=== PATIENT | male | born 1975 | race Caucasian/White ===

== ENCOUNTER → 2024-01-14 18:43 | Outpatient (REF) | payer OTHER, SELFPAY | LOC: MRI 3T 18:43 | PROVIDERS: ATTENDING PHYSICIAN Internal Medicine Gastroenterology; FAMILY PHYSICIAN Physician Assistant Medical | DX: K86.2 Cyst of pancreas (principal) | CPT/HCPCS: 74183; A9575 ==

== ENCOUNTER → 2024-04-08 06:45 | Outpatient (REF) | payer OTHER, SELFPAY | LOC: HWRAD 06:45 | PROVIDERS: ATTENDING PHYSICIAN Internal Medicine Geriatric Medicine | DX: R63.4 Abnormal weight loss (principal); R74.01 Elevation of levels of liver transaminase levels; R93.89 Abnormal findings on diagnostic imaging of other specified body structures; R52 Pain, unspecified | CPT/HCPCS: 76604 ==

== ENCOUNTER 2024-11-05 08:21 | Emergency (ER) | payer OTHER, SELFPAY ==
[2024-11-05 08:34] VITALS: BP 137/87
[2024-11-05 08:55] LABS: % Basophils 0.7 % (0-2); % Eosinophils 1.2 % (0-6); % Immature Granulocytes 0.2 % (0-0.5); % Lymphocytes 24.8 % (20.5-51.1); % Monocytes 6.5 % (1.7-9.3); % Neutrophils 66.6 % (42.2-75.2); Absolute Eosinophils 0.1 10^3/uL (0-0.7); Absolute Lymphocytes 1.4 10^3/uL (1.2-3.4); Absolute Monocytes 0.4 10^3/uL (0.1-0.6); Absolute Neutrophils 3.8 10^3/uL (1.4-6.5); Hematocrit 44.8 % (39.0-52.0); Hemoglobin 15.2 g/dL (13.0-18.0); Mean Corp Hgb Conc. 33.9 g/dL (33.0-37.0); Mean Corpuscular Hgb 31.9 pg (27.0-31.0); Mean Corpuscular Volume 94.1 fL (80.0-94.0); Mean Platelet Volume 9.9 fL (7.4-10.4); Nucleated Red Blood Cells % 0 % (-); Platelet Count 239 10^3/uL (130-400); Red Blood Cell Count 4.76 10^6/uL (4.70-6.10); Red Cell Dist. Width 12.4 % (11.5-14.5); White Blood Cell Count 5.7 10^3/uL (4.8-10.8)
[2024-11-05 09:12] LABS: ALT (SGPT) 59 U/L (0-50); AST (SGOT) 37 U/L (17-59); Albumin 4.5 g/dl (3.5-5.0); Alkaline Phosphatase 92 U/L (38-126); Blood Urea Nitrogen 16 mg/dl (9-20); Calcium 9.7 mg/dl (8.4-10.2); Carbon Dioxide 29 mmol/L (22-30); Chloride 101 mmol/L (98-107); Glucose 94 mg/dl (70-99); Potassium 4.4 mmol/L (3.5-5.1); Sodium 139 mmol/L (135-145); Total Bilirubin 1.2 mg/dl (0.2-1.3); Total Protein 7.1 g/dl (6.3-8.2); eGFR > 60.00
--- NOTE | 2024-11-05 09:12 | ED.GENMED ---
History of Present Illness
General
Chief Complaint: Fatigue
Source: patient and spouse
Exam Limitations: none
Time Seen by Provider: 11/05/24 09:11
Nursing documentation reviewed up to this point in time: agreed with
History of Present Illness
History of Present Illness:
The patient is a 49-year-old man who reports he has been experiencing fatigue and not feeling well for about 4 months. Patient reports that he is 'sick of not feeling well'. He reports that is inhibiting his ability to work properly, as it is
making him have difficulty concentrating and staying awake during work. Patient reports that his muscles feel fatigued and at times he has tremor in his legs. Patient describes a feeling of heaviness in his muscles and increased difficulty with
fine motor movement due to the fatigue. Additionally, patient reports that when he lays down he can 'feel his heartbeat radiating in towards his neck and head'. He reports that this keeps him up at night so he has had difficulty sleeping, causing
him to only get about 2 to 3 hours of sleep per night. Additionally, patient reports occasional abdominal pain, however, he denies abdominal pain at this time. Patient reports that he has been to his primary care doctor for this as well as his
environmental services assistant. He denies specific chest pain, palpitations and shortness of breath. He denies rash and joint pain. He denies fever. Patient reports that he likely has a history of hemochromatosis as well as elevated LFTs and is requesting that we
do imaging of his liver. He reports he is followed by the solar sales energy advisor at [facility] and is supposed to get a specialized ultrasound at [facility] but they were backed up and unable to accommodate him. Patient denies any specific areas of pain however at this
time.
Past History
Past History
ED Past Medical History: Arrthythmia (afib, followed by morelia Godinez) and Other (elevated LFTs, s/p bx, possible hemochromatosis)
ED Past Surgical History: Other
Social History
Tobacco: Non-smoker
Alcohol: Occasional
Drug: None
Personal:
Living: with family
Employment: Employed
Family History
Family History: Hypertension
Review of Systems
Review of Systems
Allergies reviewed?: Yes
All Other Systems: ROS reviewed and negative except as documented in HPI and ROS
Constitutional: Reports fatigue and sleep disturbance
EENT: Reports no symptoms
Respiratory: Reports no symptoms
Cardiac: Reports other (' Feels his heartbeat' but denies palpitations)
ABD/GI: Reports no symptoms
: Reports no symptoms
Musculoskeletal: Reports other (Generalized muscle weakness and muscle tremor)
Skin: Reports no symptoms
Neurological: Reports weakness (Generalized weakness)
Endocrine: Reports no symptoms
Hematologic/Lymphatic: Reports no symptoms
Psychiatric: Reports no symptoms
Phy Exam
Physical Exam
Physical Exam:
Physical Exam
General: no apparent distress, not acutely ill
Neck: supple. no meningeal signs. normal psoterior pharynx
Heart: s1/s2 regular rate and rhythm, no murmur. equal radial pulses.
Lungs: no acute respiratory distress. clear bilaterally
Abdomen: normal bowel sounds. not tender. no CVAT
Neuro: alert and oriented. no focal neurological deficits. 5 out of 5 strength in all extremities. No drift.
Skin: no rash
Psychiatric: well kept. interactive and cooperative
Extremities: no edema. no calf tenderness. negative homans. good distal pulses
Course
Orders/Labs/Results
Orders:
Orders
11/05/24 08:39
Electrocardiogram (*1) Urgent
Reason for Study: Fatigue / Weakness
EKG- Treatment ONCE
11/05/24 08:47
C-Reactive Protein Urgent
Comment: ADD ON
Complete Blood Count/With Diff Urgent
Comprehensive Metabolic Panel Urgent
Creatine Phosphokinase Urgent
Comment: ADD ON
Erythrocyte Sed Rate Urgent
Comment: ADD ON
Ferritin Urgent
Comment: ADD ON
Iron Urgent
Comment: ADD ON
Lipase Urgent
Comment: ADD ON
Lyme Progressive Urgent
Comment: ADD ON
TSH Urgent
Comment: ADD ON
11/05/24 09:14
Add On- LAB Urgent
Tests Added?: lipase
11/05/24 09:32
Add On- LAB Urgent
Tests Added?: lyme progressive, TSH
US Abdomen Complete/Upper Urgent
Comment:
Reason For Exam: increased LFTs
11/05/24 09:33
Add On- LAB Urgent
Tests Added?: CRP, ESR
11/05/24 09:43
CR Chest - 2 Views Urgent
Comment:
Reason For Exam: fatigue
11/05/24 11:32
Add On- LAB Urgent
Tests Added?: CK, FERRITIN, IRON
Abnormal Lab Results
11/05/24
08:47
MCV 94.1 H fL
(80.0-94.0)
MCH 31.9 H pg
(27.0-31.0)
ALT 59 H U/L
(0-50)
11/05/24 08:47
11/05/24 08:47
Vital Signs
Initial and Last Documented VS:
Initial Vital Signs
Temp Pulse Resp BP Pulse Ox
98.6 F 77 18 137/87 100
11/05/24 08:34 11/05/24 08:34 11/05/24 08:34 11/05/24 08:34 11/05/24 08:34
Last Documented Vital Signs
Temp Pulse Resp BP Pulse Ox
98.6 F 71 18 127/82 98
11/05/24 08:34 11/05/24 11:52 11/05/24 10:54 11/05/24 11:52 11/05/24 11:52
MDM/Problems Addressed
Differential Diagnosis Includes:
Hypothyroidism, dehydration, autoimmune disorder,
MDM/Problems Addressed:
Patient presents with chronic fatigue
Chronic conditions affecting care: Arrhythmia
Acute Exacerbation and/or Progression of Chronic Illness:
Patient's A-fib is under control and he is currently in a normal sinus rhythm
Acute Exacerbation and/or Progression of Chronic Illness: Arrhythmia
*Radiology
Radiology exam reviewed: preliminary read by ED provider (Chest x-ray reviewed by me. No acute disease) and radiology read reviewed
*Pulse Oximetry
Patient hypoxic: no
*EKG
Interpreted by ED Provider?: Yes
Interpretation: abnormal
Comparison EKG: changes noted
Rate: normal
Rhythm: sinus
[place]: normal axis
Interval: normal interval
QRS Pattern: normal QRS
Ischemia: non-specific ST changes
*Blueprint Reproducer Interpretation
Rate: normal
Interpretation: normal
Rhythm: sinus
*Critical Care Note
Total Time (30-74mins, 75-104mins- exclusive of procedures): Not Applicable
Data Reviewed
Review of Other/Old Records Reveals: Radiology Studies (Abdominal MRI report reviewed by me from 2023 which showed nonsuspicious cystic lesions of pancreas)
Source: patient and spouse
Patient Management
Social determinants of health affecting care: Living situation and Strong social support
Escalation/DeEscalation of care consider admission/obs:
There is no sign of any obvious infection or cardiac arrhythmia. Patient appears well and stable. I am unable to get the results of the iron and ferritin as well as the Lyme progressive in a timely matter and patient reports that he will check his
portal with his doctor to review these results.
ED Attending Note
-
Portions of this chart may have been created with voice recognition software.� Occasional wrong word or��sound alike� substitutions may have occurred due to the inherent limitations of voice recognition software.
Discharge Plan
Departure
Patient Disposition: Home (Routine Discharge)
Date of Disposition: 11/05/24
Time of Disposition: 12:08
Patient with high blood pressure during this ER visit?: Yes
Condition: Good
Covid-19: Not Applicable
Discharge Problem:
Fatigue
Instructions: Fatigue (DC)
Prescriptions:
No Action
[id number] [Airborne (ascorbate sodium)] 1 EACH tablet,chewable
3 ea PO DAILY
Cbd Oil
PO DAILY
Turmeric Liquid
15 mg PO DAILY
aspirin [Hazel Chewable Aspirin] 81 MG tablet,chewable
81 mg PO DAILY
Patient Comments:
patient states he sometimes forgets to take this medicine
metoprolol tartrate 25 MG tablet
25 mg PO BID Qty: 60 0RF
Referrals:
Gavino Melgoza MD [Family Provider] -
Activity Restrictions/Additional Instructions:
Recommend neurology follow-up as well as a sleep study
Interventions
Interventions:
*Risk Screen - Suicide Last Done: 11/05/24 08:34
*General Assessment Last Done: 11/05/24 08:34
*Neglect/Abuse Screening Last Done: 11/05/24 08:34
ED- Fall Risk Assessment Last Done: 11/05/24 09:44
*ED COVID-19 Vaccine History Last Done: 11/05/24 09:43
*Nursing Disposition Last Done: 11/05/24 12:23
Discharge Date and Time
Discharge Date/Time: 11/05/24 12:24
Print Language: BELGIAN
[2024-11-05 09:27] LABS: Lipase 230 U/L (23-300)
[2024-11-05 09:43] VITALS: BMI 24.2
[2024-11-05 09:45] VITALS: BP 132/91
[2024-11-05 10:32] LABS: Erythrocyte Sed Rate 10 mm/hour (0-20)
[2024-11-05 10:47] LABS: C-Reactive Protein < 5.00 mg/L (0.0-10.00)
[2024-11-05 10:54] VITALS: BP 129/88
[2024-11-05 11:15] LABS: TSH 1.12 uIU/ml (0.47-4.68)
[2024-11-05 11:52] VITALS: BP 127/82
[2024-11-05 12:48] LABS: Ferritin 48.2 ng/ml (17.9-464.0)
[2024-11-05 13:50] LABS: Iron 162 ug/dl (49-181)
[2024-11-05 14:42] LABS: Creatine Phosphokinase 87 U/L (55-170)
== END 2024-11-05 12:24 | disposition home or self-care (01) ==
LOC: EMR 08:21
PROVIDERS: Emergency Medicine; EMERGENCY PHYSICIAN Emergency Medicine; FAMILY PHYSICIAN Internal Medicine Geriatric Medicine
DX: R53.83 Other fatigue (principal); I48.91 Unspecified atrial fibrillation
CPT/HCPCS: 99285; 71046; 76700; 80053; 82550; 82728; 83540; 83690; 84443; 85025; 85652; 86140; 86618; 93005

== ENCOUNTER → 2025-05-07 07:16 | Outpatient (REF) | payer OTHER, SELFPAY | LOC: RAD 07:16 | PROVIDERS: ATTENDING PHYSICIAN Nurse Practitioner Family | DX: R10.32 Left lower quadrant pain (principal) | CPT/HCPCS: 74176 ==

== ENCOUNTER → 2025-08-06 07:22 | Outpatient (REF) | payer OTHER, SELFPAY | LOC: HWRCS 07:22 | PROVIDERS: ATTENDING PHYSICIAN Internal Medicine; FAMILY PHYSICIAN Internal Medicine Geriatric Medicine | DX: I48.0 Paroxysmal atrial fibrillation (principal); R09.89 Other specified symptoms and signs involving the circulatory and respiratory systems; I77.810 Thoracic aortic ectasia | CPT/HCPCS: 93306 ==